=== PATIENT | female | born 1950 | race Caucasian/White ===

== ENCOUNTER 2018-03-27 15:09 | Inpatient (IN) | payer OTHER ==
[~2018-03-27] VITALS: Ht 165.1 cm; Wt 75.8 kg
[~2018-03-27 15:09] MED LIST: ATIVAN0.5 M1 PO; KEFLEX500 M1 PO; MIRALAX119 GM PO; PYRIDIUM200 M1 PO
--- NOTE | 2018-03-27 16:18 | RADIOLOGY REPORT ---
EXAMINATION: XR CHEST CLINICAL INFORMATION: Fever. COMPARISON: None TECHNIQUE: 2 views of the chest were obtained. FINDINGS: Lungs are clear. No pulmonary vascular congestion. There is no pleural effusion. The heart size is normal. The cardiac and mediastinal contours are normal. There are multilevel degenerative changes of dorsal spine. Surgical clips right upper quadrant of abdomen. IMPRESSION: Unremarkable examination.
--- NOTE | 2018-03-27 16:51 | ED GENERAL ADULT ---
History of Present Illness General Chief Complaint: Fever Stated Complaint: FEVER X 2 WEEKS Source: patient Exam Limitations: no limitations Vital Signs & Intake/Output Vital Signs & Intake/Output Vital Signs Date Time Temp Pulse Resp B/P B/P Pulse O2 O2 Flow FiO2 Mean Ox Delivery Rate 03/275 98.7 88 20 148/70 97 03/27 1957 98.3 112 18 156/74 98 03/27 1734 97 Room Air 03/27 1530 98.1 90 18 158/81 98 Room Air Allergies Coded Allergies: No Known Allergies (03/15/18) Reconcile Medications Lorazepam (Ativan) 0.5 MG TABLET 1 TAB PO Q6P PRN anxiety Polyethylene Glycol 3350 (Miralax) 17 GRAM/DOSE POWDER 17 GM PO DAILY constipation mix with water, juice, soda, coffee or tea use until stools soft and regular Triage Note: PT TOLD BY HER PMD TO COME TO ER DUE TO SHE HAS BEEN FEELING LIKE SHE IS BURNING UP AND HAS BEEN RUNNING FEVERS FOR 2 WEEKS , PT STATES THAT HER BODY HURTS SHE HAS SWOLLEN LYMPH NODES FOR 4 WEEKS . ALSO STATES THAT SHE HAS NOT BEEN ABLE TO SLEEP, DENIES COUGH/SOB/CP Triage Nurses Notes Reviewed? yes HPI: Pt is a 67 y/o F PMHx DM2, HTN, HLD, fibromyalgia presenting with fevers and a burning sensation in the neck x 4 weeks. Pt states that this burning waxes and wanes, although became constant as of last night. Pin is located at the anteriolateral right neck. Pt states several weeks ago she noticed a mass under the right corner of her mandible that is still present. Pt states at home she measures fevers w tmax of 100.8. Pt has been following with PCP for this complaint, had an U/S of the neck which showed no LAD. PCP also discontinued HCTZ and meloxicam in hopes of reducing symptoms. Pt admits to a decreased appetite and recent constipation. Pt denies headache, dizziness, cp, SOB, abdominal pain, nausea, recent traveling, rashes, tick bites, LE edema. In the setting of these symptoms, patient has undergone CT abd/pelvis and TSH, as well as U/A. (Dennis MARTEL,Dallin) Past History Travel History Traveled to [place] past [place] day No Medical History Any Pertinent Medical History? 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 No (Dallin Collins MD) Review of Systems Review of Systems Constitutional: Reports: see HPI. Respiratory: Denies: see HPI. Cardiovascular: Denies: see HPI. GI: Reports: see HPI. Musculoskeletal: Reports: see HPI. (Dallin Collins MD) Physical Exam Physical Exam General Appearance: well developed/nourished, no apparent distress, alert, awake Eyes: Bilateral: normal appearance. Ears, Nose, Throat: normal pharynx, normal ENT inspection, hearing grossly normal Neck: normal inspection, supple, full range of motion, Palpable right submandibular gland Respiratory: normal breath sounds, chest non-tender, lungs clear Cardiovascular: regular rate/rhythm, normal peripheral pulses Gastrointestinal: normal bowel sounds, soft, non-tender, no organomegaly Core Measures ACS in differential dx? No CVA/TIA Diagnosis: No Sepsis Present: No Sepsis Focused Exam Completed? No (Dallin Collins MD) Progress Differential Diagnoses I considered the following diagnoses in my evaluation of the patient: Some concern for sialolithiasis in this patient given exam features and history. Lower suspicion for acute intra-abdominal process given lack of abdominal pain or suggestive features on exam with negative CT abdomen in the setting of similar vague symptoms. Could be medication reaction, however seems unlikely as the patient has not started any new medications apart from a antidepressant which was started after the recurrence of the symptoms, making serotonin syndrome or neuroleptic malignant syndrome very unlikely. Very low suspicion also for central nervous system infection, particularly in light of 3 or 4 weeks of symptoms and lack of nuchal rigidity or posterior neck pain or headache. Could be atypical presentation for tickborne illness, however patient denies any tick contact, pets, time spent outside or other risk factors. Very low suspicion for ACS in this patient given time-course, symptom profile and exam features. Plan of Care: Orders Procedure Date/time Status Heart Healthy Diet 03/28 B Active CORTISOL AM 03/28 600 Active CBC WITHOUT DIFFERENTIAL 03/28 600 Active BASIC ELECTROLYTES PLUS BUN&CR 08/15 0600 Active BASIC ELECTROLYTES PLUS BUN&CR 03/28 0000 Active LYME TITRE 03/27 2326 Active Weight 03/27 2134 Active Vital Signs 03/27 2134 Active Teach/Educate 03/27 2134 Active Pain Treatment and Response 03/27 2134 Active Nutritional Intake, Monitor 03/27 2134 Active Isolation 03/27 2134 Active Intake & Output 03/27 2134 Active Patient Care Conference 03/27 2134 Active Activity/Ambulation 03/27 2134 Active Pathway - chart 03/27 2057 Active House Staff 03/27 2057 Active LEGIONELLA URINARY ANTIGEN 03/27 2010 Complete Patient Data 03/27 194 Active Admit to inpatient 03/27 1940 Active Vital Signs 03/27 194 Active URINE OSMOLALITY 03/27 194 Complete URINE CREATININE, SPOT 03/27 194 Complete URINE LYTES, SPOT 03/27 194 Complete Code Status 03/27 194 Active Intake & Output 03/27 1733 Complete CULTURE,URINE 03/27 1652 Active THYROID STIMULATING HORMONE 03/27 1627 Complete TOTAL TRIODOTHYROXINE 03/27 1627 Complete SERUM OSMOLALITY 03/27 1627 Complete FREE T4 03/27 1627 Complete BLOOD CULTURE 03/27 1521 Active URINALYSIS 03/27 1521 Complete TROPONIN LEVEL 03/27 1521 Complete PHOSPHORUS 03/27 1521 Complete MAGNESIUM 03/27 1521 Complete LACTIC ACID 03/27 1521 Complete COMPREHENSIVE METABOLIC PANEL 03/27 1521 Complete CBC WITHOUT DIFFERENTIAL 03/27 1521 Complete EKG 03/27 1521 Active Lab Add-on Test 03/27 UNK Active VTE Mechanical Prophylaxis 03/27 UNK Active Vital Signs 03/27 UNK Active Intake & Output 03/27 UNK Active Current Medications Sig/Jordan Start time Last Medication Dose Stop Time Status Admin Heparin Sodium 5,000 UNIT Q8 03/28 0600 AC (Porcine) Sodium Chloride 1,000 ML Q20H 03/27 2330 UNVr (Normal Saline 0.9%) 03/29 1529 Acetaminophen 650 MG Q6P PRN 03/27 2100 AC (Tylenol) Laboratory Tests 03/27/18 2230: Urine Color YEL, Urine Clarity CLEAR, Urine pH 6.5, Ur Specific [place] 1.010, Urine Protein 30 H, Urine Ketones NEG, Urine Nitrite NEG, Urine Bilirubin NEG, Urine Urobilinogen 0.2, Ur Leukocyte Esterase SMALL H, Ur Microscopic SEDIMENT EXAMINED, Urine RBC 1-3, Urine WBC 3-5 H, Ur Epithelial Cells FEW, Urine Bacteria FEW H, Urine Hemoglobin MOD H, Urine Glucose NEG 03/27/182229: Urine Osmolality 262 L, Ur Random Creatinine 32.0, Ur Random Sodium 37, Ur Random Potassium 18.4, Fraction Sodium Excret 0.7 03/27/18 182: Lactic Acid Cancelled 03/27/18 162: Anion Gap 19 H, Estimated GFR > 60, BUN/Creatinine Ratio 15.7, Glucose 137 H, Serum Osmolality 256 L, Lactic Acid 1.7, Calcium 10.4 H, Phosphorus 3.4, Magnesium 1.9, Total Bilirubin 2.8 H, AST 35, ALT 47, Alkaline Phosphatase 82, Troponin I < 0.01, Total Protein 8.9 H, Albumin 5.4 H, Globulin 3.5, Albumin/ Globulin Ratio 1.5, TSH 0.551, Free T4 1.82, Total T3 1.58, CBC w Diff NO MAN DIFF REQ, RBC 5.15, MCV 88.1, MCH 30.4, MCHC 34.5, RDW 13.0, MPV 7.2 L, Gran % 76.1 H, Lymphocytes % 14.4 L, Monocytes % 8.2, Eosinophils % 0.9, Basophils % 0.4, Absolute Granulocytes 8.4 H, Absolute Lymphocytes 1.6, Absolute Monocytes 0.9 H, Absolute Eosinophils 0.1, Absolute Basophils 0 Microbiology 03/27 2326 URINE ROUT: Legionella Antigen - CAN Cancelled: Cancelled via OE: Duplicate Order 03/27 2326 URINE ROUT: Urine Culture - CAN Cancelled: Cancelled via OE: Duplicate Order 03/27 2326 BLOOD: Blood Culture - CAN Cancelled: Cancelled via OE: Duplicate Order 03/27 2326 BLOOD: Blood Culture - CAN Cancelled: Cancelled via OE: Duplicate Order 03/27 2230 URINE ROUT: Legionella Antigen - COMP 03/27 2230 URINE ROUT: Urine Culture - RECD 03/27 1752 BLOOD: Blood Culture - RECD 03/27 1627 BLOOD: Blood Culture - RECD Plan for labs, blood cultures, CT neck with IV contrast, reassessment. Infectious workup is essentially unremarkable. Patient is noted to be significantly hyponatremic on CMP. She is admitted to the hospitalist service for further management. Remains hemodynamically and neurologically stable while in the emergency department. Initial ED EKG: none (Dallin Collins MD) Departure Departure Time of Disposition: 1942 Disposition: STILL A PATIENT Condition: Stable Clinical Impression Primary Impression: Hyponatremia Referrals: Major Rodgers MD (PCP/Family) Departure Forms: Customer Survey General Discharge Information Admission Note Spoke With: Guy Zarate MD Documentation of Exam: Documentation of any treatments & extenuating circumstances including Concerns Regarding Discharge (functional status, medication knowledge or non-compliance, living conditions, etc.) that warrant an admission rather than observation: Marked hyponatremia, requiring renal function studies, repeat sodium testing close inpatient monitoring. (Dallin Collins MD) Resident Co-Sign Statement Statement: ED Attending supervision documentation- [] I saw and evaluated the patient. I have also reviewed all the pertinent lab results and diagnostic results. I agree with the findings and the plan of care as documented in the Resident's documentation. [x] I have reviewed the ED Record and agree with the Resident's documentation. [] Additions or exceptions (if any) to the Resident's note and plan are summarized below: [] (Demond Cartagena DO) Critical Care Note Critical Care Note Critical Care Time: non-applicable (Dallin Collins MD)
[2018-03-27 16:52] LABS: ABSOLUTE BASOPHIL COUNT 0 /CUMM (0.0-0.2); ABSOLUTE EOSINOPHIL COUNT 0.1 /CUMM (0.0-0.7); ABSOLUTE GRANULOCYTE CT 8.4 /CUMM (1.4-6.5); ABSOLUTE LYMPH COUNT 1.6 /CUMM (1.2-3.4); ABSOLUTE MONOCYTE COUNT 0.9 /CUMM (0.10-0.60); BASOPHIL % 0.4 % (0.0-2.0); EOSINOPHIL % 0.9 % (0-5); GRANULOCYTE % 76.1 % (42.2-75.2); HEMATOCRIT 45.3 % (37-47); MEAN CORPUSCULAR HGB 30.4 PG (27.0-31.0); MEAN CORPUSCULAR HGB CONC 34.5 G/DL (33.0-37.0); MEAN CORPUSCULAR VOLUME 88.1 FL (81.0-99.0); MEAN PLATELET VOLUME 7.2 FL (7.4-10.4); PLATELET COUNT 316 /CUMM (130-400); RED BLOOD CELL CT 5.15 /CUMM (4.20-5.40); WHITE BLOOD CELL COUNT 11.1 /CUMM (4.8-10.8)
--- NOTE | 2018-03-27 19:12 | CT SCAN REPORT ---
EXAMINATION: CT NECK WITH CONTRAST CLINICAL INFORMATION: Right-sided anterior soft tissue infection versus swollen salivary gland. Symptoms of right-sided neck pain and fever. COMPARISON: None TECHNIQUE: 95 mL Optiray 320 injected. Axial images obtained through the neck. Coronal and sagittal reformatted images performed at the CT scanner. DLP: 555.13 mGy-cm FINDINGS: There is streak artifact from patient's dental work. There is no mass or focal fluid collection. There is no significant lymphadenopathy. No mucosal abnormality of the nasopharynx, oropharynx, pharynx or hypopharynx and proximal trachea. The parotid glands, submandibular glands are normal. There are a few small hypodense nodules in the right left lobes of thyroid. Largest measuring 8 mm in the right lobe. This can be further assessed with non-emergent thyroid ultrasound. The partially visualized intracranial structures are normal. The orbits are normal. The paranasal sinuses are normally aerated. There is normal enhancement of the vasculature. There are small calcifications of the left carotid bifurcation but no stenosis of the carotids. There is a normal variant of a bovine aortic arch. The superior mediastinum in the visualized portion of lung apices are unremarkable. There is degenerative spondylosis of cervical spine and thoracic spine with disc height narrowing, endplate spurring and facet joint arthrosis. IMPRESSION: 1. No acute abnormality, CT of neck. 2. Heterogeneous thyroid with small thyroid nodules. Largest measuring 8 mm. This can be further assessed with non-emergent thyroid ultrasound.
--- NOTE | 2018-03-27 20:38 | History & Physical ---
Nicole Lorenzo 03/27/182036: General Information and HPI MD Statement: I have seen and personally examined JAN HARDWICK and documented this H&P. The patient is a 67 year old F who presented with a patient stated chief complaint of []. Source of Information: patient Exam Limitations: no limitations History of Present Illness: 67 year old female with PMH DM2, HTN, HLD, and fibromyalgia presents with 4 week history of fever (Tmax 100.8) and burning sensation in her neck and head. Patient states sx are intermittent. She reports associated decreased appetite and constipation (last BM yesterday). She also reports intermittent nausea, insomnia, and overall fatigue. She has seen her PCP two days ago who conducted a neck US for possible lymphadenopathy. US was normal. Of note: PCP recently discontinued HCTZ (last dose 03/25/18) and Meloxicam. Patient also reports mild suprapubic tenderness and difficulty initiating stream. She has seen her urologist 3 weeks ago and states her symptoms are improving. Allergies/Medications Allergies: Coded Allergies: No Known Allergies (03/15/18) Home Med list Lorazepam (Ativan) 0.5 MG TABLET 1 TAB PO Q6P PRN anxiety Polyethylene Glycol 3350 (Miralax) 17 GRAM/DOSE POWDER 17 GM PO DAILY constipation mix with water, juice, soda, coffee or tea use until stools soft and regular Past History Travel History Traveled to [place] past [place] day No Medical History Neurological: NONE EENT: NONE Cardiovascular: hypertension, hyperlipidemia Respiratory: NONE Gastrointestinal: NONE Hepatic: NONE Renal: NONE Musculoskeletal: fibromyalgia, osteoarthritis Psychiatric: anxiety Endocrine: diabetes Blood Disorders: NONE Cancer(s): NONE 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 Denies: chills, diaphoresis, weakness. EENTM: Reports: no symptoms. Cardiovascular: Reports: no symptoms. Respiratory: Reports: no symptoms. GI: Reports: no symptoms. Genitourinary: Reports: see HPI. Musculoskeletal: Reports: no symptoms. Skin: Reports: no symptoms. Exam & Diagnostic Data Last 24 Hrs of Vital Signs/I&O Vital Signs Date Time Temp Pulse Resp B/P B/P Pulse O2 O2 Flow FiO2 Mean Ox Delivery Rate 03/27 1957 98.3 112 18 156/74 98 03/27 1734 97 Room Air 03/27 1530 98.1 90 18 158/81 98 Room Air Intake & Output 03/27 1600 03/27 0800 03/27 0000 Intake Total Output Total Balance Patient 165 lb Weight Physical Exam General Appearance Alert, Oriented X3, Cooperative, No Acute Distress Skin No Rashes Skin Temp/Moisture Exam: Warm/Dry HEENT Atraumatic, PERRLA Neck Supple, No LAD Lymphatic Cervical nl Cardiovascular Regular Rate, Normal S1, Normal S2, No Murmurs Lungs Clear to Auscultation Abdomen Normal Bowel Sounds, Soft, No Tenderness Extremities No Edema, Normal Pulses, No Tenderness/Swelling Vascular Normal Pulses Assessment/Plan Assessment: 67 year old female with PMH DM2, HTN, HLD, and fibromyalgia presents with 4 week history of fever (Tmax 100.8) and burning sensation in her neck and head that is intermittent. ED work up showed hyponatremia with Na 123 and leukocytosis 11.1. She will be admitted to the general medicine service for further care of the following: Problem List: 1. Hyponatremia 2. Leukocytosis 3. Elevated Bilirubin 4. Thyroid nodules on CT neck Admission Data: VS T98.1 P90 RR18 BP 158/81 Sat 98%RA Pertinent Labs: WBC 11.1; Na 123; T. Bili 2.8 Imaging: CT neck: 1. No acute abnormality, CT of neck. 2. Heterogeneous thyroid with small thyroid nodules. Largest measuring 8 mm. This can be further assessed with non-emergent thyroid ultrasound. CXR: Negative #Hyponatremia-possibly 2/2 low sodium diet (patient on because needs heart healthy diet) vs decrease PO intake vs medication induced (recent d/c of HCTZ with last dose on 03/25) vs psychogenic (patient states she increased PO intake of water with her fever at home) -NS @50cc/hr: this rate was calculated with Dr. Zarate; Na requirements= 140-123 X 0.5(75kg)= 637/3=248dLa to be given of 24hours. Will set rate at 50cc/hr with NS (Na 154mEq) -Repeat BEP at midnight and 6am; monitor Na correction closely -Will obtain Urine antigens: Legionella specifically given patient's hyponatremia. Unlikely given normal CXR and afebrile on presentation. #Leukocytosis-possibly reactive. No other signs of infection. UA pending but was negative outpatient with Urologist. Possible underlying Lyme disease although patient reports no rashes. Will obtain lyme titer since this is CT and patient with 4 week history of low grade fever; fatigue; hyponatremia. -continue to monitor. No role for abx at this time -f/u lyme titer #Elevated T. Bilirubin- s/p cholecystectomy and patient without abdominal pain. Consider fractionating. -Repeat LFTs; normal on admission #Thyroid nodules-incidental finding on CT neck. No need for inpatient work up. -Follow up as outpatient for further work up. Patient has appt for thyroid US and FNA scheduled 03/28. She will need to reschedule this appt. As Ranked By This Provider Problem List: 1. Hyponatremia 2. Total bilirubin, elevated Core Measures/Misc (04/30) Acute Coronary Syndrome ACS Diagnosis: No Congestive Heart Failure Congestive Heart Failure Diagnosis No Cerebrovascular Accident CVA/TIA Diagnosis: No VTE (View Protocol) VTE Risk Factors Age>40 No Mechanical VTE Prophylaxis d/t N/A MechProphylax Ordered No VTE Pharm Prophylaxis d/t NA PharmProphylax ordered Sepsis (View protocol) Sepsis Present: No If YES complete Sepsis Event Note If YES complete Sepsis Event Note Teresa Tamayo 03/27/18 7615: Core Measures/Misc (04/30) Sepsis (View protocol) If YES complete Sepsis Event Note If YES complete Sepsis Event Note Resident Review Statement Resident Statement: examined this patient, discussed with general internist and physician leader, agreed with general internist and physician leader, discussed with family, reviewed EMR data (avail), discussed with nursing , discussed with case mgmt, reviewed images, amended to note Other Findings: Ms. Hardwick is a 67yo F w/ PMH of T2DM, HTN, HLD, fibromyalgia presented w/ fever/intermittent burning sensation in the anterolateral right neck x 4 weeks, also complained of a mass under right corner of mandible that is still present. 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 Also patient was recently started on Lexapro x 1 day as well. She was constipated in the past week that she used miralax for relief and had some episodes of loose BM however not diarrhea. Patient endorsed drinking 2-3L water/day due to that fact she was worrying from her fever, which did not spike during this admission yet. Rest of HPI per above. During our clinical interaction, patient denied recent travel/sick contacts, lightheadedness/diaphoresis/night sweat/weight change/cough/SOB/Chest Pain/ Palpitation/Abdominal pain/CVA tenderness/urinary abnormality, or other skin/ musculoskeletal/neurological/mood disorders, or dietary/appetite change. -Smoking: denied -Alcohol: denied -Drugs: denied On admission, Vitals: stable afebriloe, BP 158/81, 97 RA Physical exam as above. Grossly normal PE without any active findings. -CBC: mild leukocytosis 11.1, otherwise WNL -CMP: AG 19, HypoNa 123, serum OSM 256 -CXR: No acute -CT Neck: 1. No acute abnormality, CT of neck. 2. Heterogeneous thyroid with small thyroid nodules. Largest measuring 8 mm. This can be further assessed with non-emergent thyroid ultrasound. -EKG: NSR w/o significant ST-T abnormalities, unchanged from previous. -Last Echo: none in our system -Interventions in ER: NS bolus x 1 Problem list/Assessment/Hospital Course: #Hypotonic Hyponatremia, multifactorial 2/2 dehydration/HCTZ/SSRI use/Polydipsia #Mild leukocytosis, likely reactive #Incidental findings of thyroid nodules #Fever of Unknown origin, not active on admission #Hyperalbunemia w/o hyperglobinemia, unknown etiology #PMHx as above - Admit to general medicine - Vitals per protocol, monitor I&O per protocol. - AccuChek TIDAC for now. - Continuous IVF NS at 50cc/hr w/ goal of correction <7meq/24hrs - Recheck BEP at midnight and 0600 T+1. - Continue all home meds, except continue holding HCTZ - Hold metformin as patient stated that she was not taking it anymore due to good HbA1c. Recheck HbA1c. - Recheck TSH profiles due to thyroid nodules - Please confirm patient's home meds doses at [facility] in [place]. Patient's med list has no dosing and she could not remember. - Pending cultures including blood/urine/legionella antigen/lyme titer for explaination of FOU - Pain per pathway DVT prophylaxis Heparin SC + ALPS Regular Diet IV Access: Peripheral IV Full Code Dispo: likely [facility] [place] Elliot MARTELGuy 03/28/18 0030: Core Measures/Misc (04/30) Sepsis (View protocol) If YES complete Sepsis Event Note If YES complete Sepsis Event Note Attending MD Review Statement Attending Statement Attending MD Statement: examined this patient, discuss w/resident/PA/BANANA HANDLER, agreed w/resident/PA/BANANA HANDLER Attending Assessment/Plan: Patient is seen and examined independently by me. Care plan discussed with medical front desk coordinator and resident. I agree with the physical exam findings and plan of care as outlined above with the following changes and additions. 67 yo F with history of HTN, HLD, DM, fibromyalgia, s/p cholecystectomy, presented with fever and right neck pain for 4 weeks. Patient had outpatient US of neck which found thyroid nodule and planned for US thyroid and FNA tomorrow. She feels "hot and flush" and occasionally will have low grade temp (Tmax 100.8) . She denies chills, chest pain, SOB, cough, diarrhea or dysuria. She felt nauseous once yesterday but no vomiting. She had lower abdominal pain and had seen a Urologist with negative UA and negative cystoscopy. She has decreased appetite, insomnia, easy fatigue and constipation over the last few weeks. She took Miralax and constipation better with last BM yesterday. Her PCP started her on Lexapro yesterday for which she only took one dose so far. She is also instructed to discontinue HCTZ and meloxicam. Last dose of HCTZ was on 03/25 ( Monday). Because of her lower grade fever, she has been drinking five 20 oz cup of water daily. On exam, no right cervical mass or lymphadenopathy appreciated. Lungs clear. Abdomen benign. Ext: no edema. 03/15/18 CT abdomen and pelvis is unremarkable except for stool burden in colon. In the ED, Na 123 (132 on 03/15/18), Cl 83. K 4.3. Cr 0.9. Ca 10.4, albumin 5.4. WBC 11.1. CXR shows no acute infiltrate or edema. US neck shows no lymphadenopathy, mass or fluid collection, The parotid glands and submandibular glands are normal. Multiple thyroid nodules with largest 8 mm in the right lobe. EKG shows NSR at [address]-T changes when compares with previous EKG. Patient is admitted to [facility] for hyponatremia probably related to HCTZ use. However, she has mild leukocytosis with low grade fever. Even no recall of tick bite, she need to r/o Lyme since it can cause hyponatremia with SIADH effect. Check urine Na and urine osmolality. Check TSH, free T4 and cortisol level. She got 1 L NS in the ED already. Start NS at 50 cc/hr and follow serial Na level. Hold HCTZ and Lexapro. Check Lyme titer, blood and urine culture. Guy Zarate MD FACP
[2018-03-27 21:45] VITALS: BP 148/70
[2018-03-28 06:02] VITALS: BP 140/62
--- NOTE | 2018-03-28 06:50 | PN- Housestaff ---
Chano Ríos 03/28/18 0650: Subjective Follow-up For: Pain in neck, flushing of head Hypertension Hyponatremia Leukocytosis Elevated Bilirubin Thyroid nodules on CT neck Subjective: I visited the patient this morning, she was lying back in her bed, alert and oriented 3, in no acute distress. She had complaints of her neck pain, and flushing of her head and face. Her other complaint was that she has not been able to sleep for the past few days. She also complains about constipation. She did not report any fever, chills, sweating, chest pain, abdominal pain, lightheadedness, dizziness, nausea, vomiting. Review of Systems Constitutional: Reports: see HPI. Objective Last 24 Hrs of Vital Signs/I&O Vital Signs Date Time Temp Pulse Resp B/P B/P Pulse O2 O2 Flow FiO2 Mean Ox Delivery Rate 03/28 1429 98.2 83 18 134/62 97 03/28 0602 98.8 78 20 140/62 98 03/28 0223 98.7 88 20 148/70 03/27 2145 98.7 88 20 148/70 97 03/27 1957 98.3 112 18 156/74 98 03/27 1734 97 Room Air Intake & Output 03/28 1600 03/28 0800 03/28 0000 Intake Total 272 160 8876 Output Total 300 Balance 360 600 900 Intake, IV 400 1000 Intake, Oral 360 200 200 Output, Urine 300 Patient 167 lb Weight Weight Reported by Patient Measurement Method Physical Exam General Appearance: Alert, Oriented X3, Cooperative, No Acute Distress Skin: No Rashes, No Breakdown, No Significant Lesion Skin Temp/Moisture Exam: Warm/Dry Sepsis Skin Exam (color): Normal for Ethnicity HEENT: Atraumatic, PERRLA, EOMI Neck: Supple, No JVD, one firm lymp node 1cm x 1cm on right side Cardiovascular: Regular Rate, Normal S1, Normal S2 Lungs: Clear to Auscultation, Normal Air Movement Abdomen: Normal Bowel Sounds, Soft, No Tenderness Neurological: Normal Speech, Strength at 5/5 X4 Ext, Normal Tone, Sensation Intact Extremities: No Clubbing, No Cyanosis, No Edema, Normal Pulses, No Tenderness/ Swelling Vascular: Normal Pulses, Pulses Symmetrical Assessment/Plan Assessment: Pt is a 67YOF with a PMH significant for type 2 diabetes, hypertension, hyperlipidemia, and fibromyalgia. She presented to the ED yesterday with 4wks severe whole body sensation of burning and a R sided neck lump accompanied by periodic subjective fevers. On admission yesterday, the patient had leukocytosis to 11.1, hyponatremia to 123 which went up to 128, hyperbilirubinemia with Tbili to 2.8, direct bili 0.8 and thyroid nodules on CT neck with largest 8mm. She was afebrile on presentation and has remained afebrile since. Today, BEP shows hyponatremia is correcting at the appropriate rate of no more than 8mEq in the first 24hr. Hyponatremia has improved from 123 to 128. Hypochloremia is also improving. Leukocytosis has resolved at 9.0 today. Urine antigen for legionella is negative. Lyme titer is pending. Hyponatremia: Came up from 123 to 128 Plan: Continue IV NS at rate of 50mL/hr, f/u BEP at 6 PM Leukocytosis: It is probably reactive Plan: CBC in the morning Hyperbilirubinemia: Total bilirubin of 2.8 with direct bili of 0.8 Plan: She will be checked up for reasons of high bili as an outpatient. Constipation: Pt reports constipation for the last month. She used miralax with no effects for 1 wk. She still feels irregular. This is likely chronic and diet related as her last colonoscopy in 2013 showed 1 polyp of no concern. Plan: Senna S and colace PRN HTN Plan: Continue metoprolol and amlodipine. Hold valsartan d/t hyponatremia. Fibromyalgia: Stable. Pt is doing well on PO pain meds PRN. Depression: Continue holding escitalopram d/t hyponatremia. Pt has appropriate mood and affect. Has only been taking the med for 2-3 doses and is onboard with holding it. Stable. Pt is doing well on PO pain meds PRN. Problem List: 1. Hyponatremia 2. Constipation 3. Total bilirubin, elevated 4. Thyroid nodule 5. Depression Pain Ratin Pain Location: Not applicable Pain Goal: Remain pain free Pain Plan: Not applicable Tomorrow's Labs & Rationales: Recheck sodium Chris Barnett MD 03/28/182034: Attending MD Review Statement Attending Statement Attending MD Statement: examined this patient, discuss w/resident/PA/BOILERMAKER WELDER, agreed w/resident/PA/BOILERMAKER WELDER, reviewed EMR data (avail), discussed with nursing, discussed with case mgmt, amended to note Attending Assessment/Plan: The patient was seen and discussed with house staff. Hyponatremia secondary to diuretic, excessive water, low sodium diet. Is correcting at appropriate rate. Will continue IV fluids and liberalize diet. Restart other BP meds, etc.
[2018-03-28 08:15] LABS: ABSOLUTE BASOPHIL COUNT 0 /CUMM (0.0-0.2); ABSOLUTE EOSINOPHIL COUNT 0.1 /CUMM (0.0-0.7); ABSOLUTE GRANULOCYTE CT 6.8 /CUMM (1.4-6.5); ABSOLUTE LYMPH COUNT 1.3 /CUMM (1.2-3.4); ABSOLUTE MONOCYTE COUNT 0.7 /CUMM (0.10-0.60); BASOPHIL % 0.3 % (0.0-2.0); EOSINOPHIL % 1.5 % (0-5); GRANULOCYTE % 75.7 % (42.2-75.2); HEMATOCRIT 41.8 % (37-47); MEAN CORPUSCULAR HGB 29.8 PG (27.0-31.0); MEAN CORPUSCULAR VOLUME 87.5 FL (81.0-99.0); MEAN PLATELET VOLUME 7.6 FL (7.4-10.4); PLATELET COUNT 321 /CUMM (130-400); RBC DISTRIBUTION WIDTH 13.4 % (11.5-14.5); RED BLOOD CELL CT 4.78 /CUMM (4.20-5.40)
--- NOTE | 2018-03-28 08:41 | PN- Student ---
Mike Ramsey 03/28/18 0830: Subjective Subjective: Intro: Pt is a 67YOF with a PMH significant for type 2 diabetes, hypertension, hyperlipidemia, and fibromyalgia who is presenting with flushing and feeling of burning fevers x4wks. HPI: Pt presented to the ED yesterday with severe whole body sensation of burning and a R sided neck lump accompanied by periodic fevers for the last 4wks measured to 100.8 at home. She also had been experiencing lower abdominal discomfort and difficulty initiating urination for the past 6wks or so. 4wks prior to this visit, the patient saw Dr. Vivien Lyle urologist for her abdominal discomfort and urinary symptoms as she thought she may be having a urinary tract issue. Dr. Lyle stopped the pt's tramadol and performed a cystoscopy which was normal. There has been no change in these symptoms. 2wks ago, the pt came to [facility] for her lower abdominal discomfort and urinary symptoms. CT A/P showed increased stool burden in the colon and she was given miralax. UCx at that time was clean though she was given Keflex in the ED which she reports finishing. The pt has also been seeing her PCP Dr. Major Rodgers for the lump that developed on the L side of her neck. She had an US which showed nothing for the neck lump but some thyroid nodularity and was scheduled for FNA on 03/28/18 (has been rescheduled). PCP is still investigating the lump. Additionally, the pt's PCP stopped her meloxicam and her HCTZ as he thought these may be contributing to her symptoms. On admission yesterday, the patient had leukocytosis to 11.1, hyponatremia to 123, hyperbilirubinemia with Tbili to 2.8, and thyroid nodules on CT neck with largest 8mm. The neck lump on the L was not found to be greater than 1cm. She was afebrile on presentation and has remained afebrile since. Meds: Cont- Metoprolol 25mg BID Amlodipine 5mg OD Yuvafem 10microg 2x/wk Lorazapam 0.5mg Q6 PRN Loratadine 10mg OD PRN Held - KCl 20mEq OD Escitalopram 10mg OD Valsartan 160mg OD D/c this week by PCP HCTZ 25mg OD Meloxicam 7.5mg OD Allergies: Penicillin - pt reports her mother told her and she doesn't know what her reaction was. She thinks she took it as an adult and tolerated it well. PMH: DM2, HTN, HLD, fibromyalgia, Osteoarthritis, anxiety, frequent UTIs, vaginal atrophy PSH: total hysterectomy in 2000, cholecystectomy in , sinus debulking (can' t remember year), removal of precancerous skin lesion on L eyelid (can't remember year) Family: Mother passed from lung cancer, was smoker. Brother recently diagnosed with lung cancer, was smoker. Brother and his son have kidney stones. Social: Pt is and had 2 children via uncomplicated . 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 Pt's is supportive, but is morbidly obese and has several comorbid conditions. Pt was active and went to the gym several times per week until 4wks ago when she became ill. She eats a heart healthy, low Na diet at home. Objective Objective: Vital Signs Date Time Temp Pulse Resp B/P B/P Pulse O2 O2 Flow FiO2 Mean Ox Delivery Rate 03/28 0602 98.8 78 20 140/62 98 03/28 0223 98.7 88 20 148/70 03/27 2145 98.7 88 20 148/70 97 03/27 1957 98.3 112 18 156/74 98 03/27 1734 97 Room Air 03/27 1530 98.1 90 18 158/81 98 Room Air Intake & Output 03/28 1600 03/28 0800 03/28 0000 Intake Total 600 1200 Output Total 300 Balance 600 900 Intake, IV 400 1000 Intake, Oral 200 200 Output, Urine 300 Patient 167 lb Weight Weight Reported by Patient Measurement Method Physical Exam Gen - NAD, well nourished, well developed, alert Psych - appropriate mood and affect, slightly anxious Neuro - AOx4, patellar and biceps reflexes present and symmetrical HEENT - normocephalic, atraumatic, PERRLA, MMM, slightly tender swelling in the R neck at the angle of the mandible measuring about 1cm x 1cm, smooth thyroid without nodularity or goiter CV - RRR no MRG Pulm - CTA BL, good air entry, no increased work of breathing Abd - +BS, soft, nondistended, nontender to palpation in all quadrants, no hepatosplenomegaly Ext - warm and well perfused, slight nondependent edema at the ankle, PT/DP pulses 2+ BL, radial pulses 2+ bL Results Results: Laboratory Tests 03/28/18 0632: Anion Gap 15, Estimated GFR > 60, BUN/Creatinine Ratio 15.7, Cortisol AM Sample 22.0, CBC w Diff NO MAN DIFF REQ, RBC 4.78, MCV 87.5, MCH 29.8, MCHC 34.0, RDW 13.4, MPV 7.6, Gran % 75.7 H, Lymphocytes % 14.5 L, Monocytes % 8.0, Eosinophils % 1.5, Basophils % 0.3, Absolute Granulocytes 6.8 H, Absolute Lymphocytes 1.3, Absolute Monocytes 0.7 H, Absolute Eosinophils 0.1, Absolute Basophils 0 03/28/18 0000: Anion Gap 14, Estimated GFR > 60, BUN/Creatinine Ratio 17.1, Lyme Disease Antibody Pending 03/27/18 2230: Urine Color YEL, Urine Clarity CLEAR, Urine pH 6.5, Ur Specific [place] 1.010, Urine Protein 30 H, Urine Ketones NEG, Urine Nitrite NEG, Urine Bilirubin NEG, Urine Urobilinogen 0.2, Ur Leukocyte Esterase SMALL H, Ur Microscopic SEDIMENT EXAMINED, Urine RBC 1-3, Urine WBC 3-5 H, Ur Epithelial Cells FEW, Urine Bacteria FEW H, Urine Hemoglobin MOD H, Urine Glucose NEG 03/27/18 2230: Urine Osmolality 262 L, Ur Random Creatinine 32.0, Ur Random Sodium 37, Ur Random Potassium 18.4, Fraction Sodium Excret 0.7 03/27/18 1821: Lactic Acid Cancelled 03/27/18 1627: Anion Gap 19 H, Estimated GFR > 60, BUN/Creatinine Ratio 15.7, Glucose 137 H, Serum Osmolality 256 L, Lactic Acid 1.7, Calcium 10.4 H, Phosphorus 3.4, Magnesium 1.9, Total Bilirubin 2.8 H, Direct Bilirubin 0.8 H, AST 35, ALT 47, Alkaline Phosphatase 82, Troponin I < 0.01, Total Protein 8.9 H, Albumin 5.4 H , Globulin 3.5, Albumin/Globulin Ratio 1.5, TSH 0.551, Free T4 1.82, Total T3 1.58, CBC w Diff NO MAN DIFF REQ, RBC 5.15, MCV 88.1, MCH 30.4, MCHC 34.5, RDW 13.0, MPV 7.2 L, Gran % 76.1 H, Lymphocytes % 14.4 L, Monocytes % 8.2, Eosinophils % 0.9, Basophils % 0.4, Absolute Granulocytes 8.4 H, Absolute Lymphocytes 1.6, Absolute Monocytes 0.9 H, Absolute Eosinophils 0.1, Absolute Basophils 0 Microbiology 03/27 2230 URINE ROUT: Legionella Antigen - Negative 03/27 2230 URINE ROUT: Urine Culture - no growth one day 03/27 175 BLOOD: Blood Culture - no growth one day 03/27 162 BLOOD: Blood Culture - no growth one day Assessment/Plan Assessment: Assessment: Pt is a 67YOF with a PMH significant for type 2 diabetes, hypertension, hyperlipidemia, and fibromyalgia. She presented to the ED yesterday with 4wks severe whole body sensation of burning and a R sided neck lump accompanied by periodic subjective fevers. This was concurrent with lower abdominal discomfort and difficulty initiating urination. Pt has seen urologist Dr. Lyle for the issue but no pathologies were found. She has also been to the [facility] ED on 03/15/18 and was found to have constipation. At the same time, pt has been worked up by PCP Dr. Rodgers for neck lump and was found to have small thyroid nodules which are scheduled to be aspirated. On admission yesterday, the patient had leukocytosis to 11.1, hyponatremia to 123, hyperbilirubinemia with Tbili to 2.8, and thyroid nodules on CT neck with largest 8mm. She was afebrile on presentation and has remained afebrile since. Today, BEP shows hyponatremia is correcting at the appropriate rate of no more than 8mEq in the first 24hr. Hyponatremia has improved from 123 to 128. Hypochloremia is also improving. Leukocytosis has resolved at 9.0 today. Urine antigen for legionella is negative. Lyme titer is pending. Problem List/Plan 1. Hyponatremia Pt is hyponatremic with low serum osm and low urine osm making primary polydipsia and decreased solute intake the most likely etiologies for her condition. It is likely that a combination of the patient's low Na diet along with her increased H2O intake are to blame. Other etiologies to consider are thyroid disease and hypercortisolism, along with Lyme disease as this can be easily corrected but the patient does not have classic symptoms. TSH and cortisol are WNL. Similarly, we have considered legionella but this is unlikely given the clinical scenario. It has been r/o with neg urine antigen. - continue IV NS at rate of 50mL/hr - f/u Lyme - f/u BEP 2. Leukocytosis We will consider infectious etiology for leukocytosis. Blood/Urine Cx show no growth after one day though making this etiology unlikely. Leukocytosis has resolved this morning to 9.0 also evidencing a non infectious etiology. - CBC in the morning - monitor vitals 3. Hyperbilirubinemia Pt's hyperbilirubenmia with Tbili of 2.8 and direct of 0.8 could be from a number of causes including hepatitis, BELTRAN, and drugs or toxins. Hepatitis is unlikely as the pt is low risk. BELTRAN is possible as the pt has a hx of HLD. As the patient has recently started meloxicam, she could have drug induced hyperbilirubinemia, a known though rare side effect. However, as the hyperbilirubinemia is subclinical, determining an etiology is of little concern at this time. - will call PCP for Hep C screening result and baseline LFTs - f/u LFTs outpatient 4. Constipation Pt reports constipation for the last month. She used miralax with no effects for 1 wk. She still feels irregular. This is likely chronic and diet related as her last colonoscopy in 2013 showed 1 polyp of no concern. - senna S and colace PRN 5. HTN Continue metoprolol and amlodipine. Hold valsartan d/t hyponatremia. 6. Fibromyalgia Stable. Pt is doing well on PO pain meds PRN. 7. Depression Continue holding escitalopram d/t hyponatremia. Pt has appropriate mood and affect. Has only been taking the med for 2-3 doses and is onboard with holding it. Diet: Regular DVT: ALPS and heparin SQ Code: Full
[2018-03-28 14:29] VITALS: BP 134/62
[2018-03-28] MEDS ORDERED: CLARITIN10 M1 PO (15:20)
[2018-03-28] MEDS ORDERED: ESCITALOPRAM OX20 MG PO (15:20)
[2018-03-28] MEDS ORDERED: POTASSIUM CHLO20 ME2 PO (15:21)
[2018-03-28] MEDS ORDERED: MELOXICAM7.5 M1 PO (15:21)
[2018-03-28] MEDS ORDERED: ATIVAN0.5 M1 PO (15:22)
[2018-03-28] MEDS ORDERED: METOPROLOL TART25 M1 PO (15:22)
[2018-03-28] MEDS ORDERED: VALSARTAN160 M1 PO (15:22)
[2018-03-28] MEDS ORDERED: AMLODIPINE BESYL5 M1 PO (15:22)
[2018-03-28 22:01] VITALS: BP 136/70
[2018-03-29 05:49] VITALS: BP 128/62
--- NOTE | 2018-03-29 06:34 | PN- Housestaff ---
Chano Ríos 03/29/18 0634: Subjective Follow-up For: Pain in neck, flushing of head Hypertension Hyponatremia Leukocytosis Elevated Bilirubin Thyroid nodules on CT neck Subjective: Last night she was anxious about her medical problems. I talked to her and for 45 minutes from 19:50 to 20:45. I visited the patient this morning, she was sitting at the age of her bed. Alert and oriented 3, in no acute distress. She had more questions about her blurry vision which had occurred last night. She also has a history of cataract , and diabetes mellitus which might be the reason for her blurry vision. She denies headache, lightheadedness, dizziness, chest pain, abdominal pain, diarrhea, constipation, dysuria, nausea, or vomiting. Review of Systems Constitutional: Reports: see HPI. Objective Last 24 Hrs of Vital Signs/I&O Vital Signs Date Time Temp Pulse Resp B/P B/P Pulse O2 O2 Flow FiO2 Mean Ox Delivery Rate 03/29 0549 97.5 69 20 128/62 97 03/28 2201 98.2 72 20 136/70 96 Room Air 03/28 2036 72 136/70 03/28 1757 76 140/72 03/28 1429 98.2 83 18 134/62 97 Intake & Output 03/29 1600 03/29 0800 03/29 0000 Intake Total 580 600 Output Total Balance 580 600 Intake, IV 400 200 Intake, Oral 180 400 Physical Exam General Appearance: Alert, Oriented X3, Cooperative, No Acute Distress Skin: No Rashes Skin Temp/Moisture Exam: Warm/Dry Sepsis Skin Exam (color): Normal for Ethnicity HEENT: Atraumatic, PERRLA Neck: Supple, No JVD Cardiovascular: Regular Rate, Normal S1, Normal S2 Lungs: Clear to Auscultation, Normal Air Movement Abdomen: Normal Bowel Sounds, Soft, No Tenderness Neurological: Normal Speech, Strength at 5/5 X4 Ext, Normal Tone, Sensation Intact Extremities: No Clubbing, No Cyanosis, No Edema, Normal Pulses, No Tenderness/ Swelling Assessment/Plan Assessment: Pt is a 67YOF with a PMH significant for type 2 diabetes, hypertension, hyperlipidemia, and fibromyalgia. She presented to the ED yesterday with 4wks severe whole body sensation of burning and a R sided neck lump accompanied by periodic subjective fevers. On admission yesterday, the patient had leukocytosis to 11.1, hyponatremia to 123 which went up to 128, hyperbilirubinemia with Tbili to 2.8, direct bili 0.8 and thyroid nodules on CT neck with largest 8mm. She was afebrile on presentation and has remained afebrile since. Today, BEP shows hyponatremia is correcting at the appropriate rate of no more than 8mEq in the first 24hr. Hyponatremia has improved from 123 to 128. Hypochloremia is also improving. Leukocytosis has resolved at 9.0 today. Urine antigen for legionella is negative. Lyme titer is pending. I will call her and inform her about the Lyme titer later today. Hyponatremia: Came up from 123 to 128, 132. Plan: She received IV normal saline here. Please recheck a sodium in 1 week from her discharge. Leukocytosis: It is probably reactive Plan: We will follow-up your CBC Hyperbilirubinemia: Total bilirubin of 2.8 with direct bili of 0.8 Plan: She will be checked up for reasons of high bili as an outpatient. Constipation: Pt reports constipation for the last month. She used miralax with no effects for 1 wk. She still feels irregular. This is likely chronic and diet related as her last colonoscopy in 2013 showed 1 polyp of no concern. Plan: Senna S and colace PRN HTN Plan: Continue metoprolol and amlodipine. Hold valsartan d/t hyponatremia. Hydrochlorothiazide was held before she was admitted to the hospital. Fibromyalgia: Stable. Pt is doing well on PO pain meds PRN. Depression: Continue holding escitalopram d/t hyponatremia. Pt has appropriate mood and affect. Has only been taking the med for 2-3 doses and is onboard with holding it. Stable. Pt is doing well on PO pain meds PRN. Problem List: 1. Hyponatremia 2. Total bilirubin, elevated 3. Thyroid nodule 4. Depression 5. Constipation Pain Ratin Pain Location: Not applicable Pain Goal: Remain pain free Pain Plan: Not applicable Tomorrow's Labs & Rationales: Not applicable Chris Barnett MD 03/29/18 1802: Attending Review Statement Attending Statement Attending Statement: examined this patient, discuss w/resident/PA/EMPLOYMENT EDUCATIONAL COORD, agreed w/resident/PA/EMPLOYMENT EDUCATIONAL COORD, reviewed EMR data (avail), discussed with nursing, discussed with case mgmt, amended to note Attending Assessment/Plan: The patient was seen and discussed with house staff. Na increased and OK to discharge to home today with follow-up with PCP.
--- NOTE | 2018-03-29 08:15 | PN- Student ---
Subjective Subjective: Pt seen and examined at bedside this morning. She reports great improvement from yesterday with only mild burning sensation occasionally and no abdominal pain. She says the lump in her R neck has reduced pain as well. She denies headache, chest pain, SOB, nausea, vomiting, leg pain. She remains constipated but feels like she can move her bowels today. Objective Objective: Vital Signs Date Time Temp Pulse Resp B/P B/P Pulse O2 O2 Flow FiO2 Mean Ox Delivery Rate 03/29 0549 97.5 69 20 128/62 97 03/28 2201 98.2 72 20 136/70 96 Room Air 03/28 2036 72 136/70 03/28 1757 76 140/72 03/28 1429 98.2 83 18 134/62 97 Intake & Output 03/29 1600 03/29 0800 03/29 0000 Intake Total 580 600 Output Total Balance 580 600 Intake, IV 400 200 Intake, Oral 180 400 Physical Exam Gen - NAD, well nourished, well developed, alert Psych - appropriate mood and affect, slightly anxious Neuro - AOx4 HEENT - normocephalic, atraumatic, PERRLA, MMM, nontender swelling in the R neck at the angle of the mandible measuring about 1cm x 1cm, smooth thyroid without nodularity or goiter CV - RRR no MRG Pulm - CTA BL, good air entry, no increased work of breathing Abd - +BS, soft, nondistended, nontender to palpation in all quadrants, no hepatosplenomegaly Ext - warm and well perfused Results Results: Laboratory Tests 03/29/18 0940: Anion Gap 10, Estimated GFR > 60, BUN/Creatinine Ratio 17.1 03/28/18 1800: Anion Gap 10, Estimated GFR > 60, BUN/Creatinine Ratio 18.6 Assessment/Plan Assessment: Assessment: Pt is a 67YOF with a PMH significant for type 2 diabetes, hypertension, hyperlipidemia, and fibromyalgia. She presented to the ED 2 days ago with 4wks severe whole body sensation of burning and a R sided neck lump accompanied by periodic subjective fevers. This was concurrent with lower abdominal discomfort and difficulty initiating urination. Pt has seen urologist Dr. Lyle for the issue but no pathologies were found. She has also been to the [facility] on 03/15/18 and was found to have constipation. At the same time, pt has been worked up by PCP Dr. Rodgers for neck lump and was found to have small thyroid nodules which are scheduled to be aspirated. On admission, the patient had leukocytosis to 11.1, hyponatremia to 123, hyperbilirubinemia with Tbili to 2.8, and thyroid nodules on CT neck with largest 8mm. She was afebrile on presentation and has remained afebrile since. Yesterday, BEP showed hyponatremia was correcting at the appropriate rate of no more than 8mEq in the first 24hr. Hyponatremia has improved from 123 to 132. Leukocytosis resolved at 9.0 yesterday. Urine antigen for legionella is negative. AM cortisol WNL. TSH WNL. Lyme titer is neg. Problem List/Plan 1. Hyponatremia Pt is hyponatremic with low serum osm and low urine osm making primary polydipsia and decreased solute intake the most likely etiologies for her condition. It is likely that a combination of the patient's low Na diet, her increased H2O intake secondary to feeling feverish, and several medications she was taking which can cause hyponatremia are to blame. We have r/o hypercortisolism and hypothyroidism. We have considered legionella but this is unlikely given the clinical scenario. It has been r/o with neg urine antigen. Lyme titer is neg as well. - continue IV NS at rate of 50mL/hr until discharge - discharge in the afternoon if pt is stable - f/u outpatient with PCP 2. Leukocytosis We have considered infectious etiology for leukocytosis. Blood/Urine Cx show no growth after two days though making this etiology highly unlikely. Leukocytosis has resolved also evidencing a non infectious etiology. - monitor vitals - Resolved 3. Hyperbilirubinemia Pt's hyperbilirubenmia with Tbili of 2.8 and direct of 0.8 could be from a number of causes including hepatitis, BELTRAN, and drugs or toxins. Hepatitis is unlikely as the pt is low risk. BELTRAN is possible as the pt has a hx of HLD. As the patient has recently started meloxicam, she could have drug induced hyperbilirubinemia, a known though rare side effect. However, as the hyperbilirubinemia is subclinical, determining an etiology is of little concern at this time. - will call PCP for Hep C screening result and baseline LFTs - f/u LFTs outpatient with PCP 4. Constipation Pt reports constipation for the last month. She used miralax with no effects for 1 wk. She still feels irregular. This is likely chronic and diet related as her last colonoscopy in 2013 showed 1 polyp of no concern. - senna S and colace PRN 5. HTN Continue metoprolol and amlodipine. Hold valsartan d/t hyponatremia. 6. Fibromyalgia Stable. Pt is doing well on PO pain meds PRN. 7. Depression/Anxiety Continue holding escitalopram d/t hyponatremia. Pt has appropriate mood and affect. Has only been taking the med for 2-3 doses and is onboard with holding it. - f/u outpatient with PCP Diet: Regular DVT: ALPS and heparin SQ Code: Full Pt is hyponatremic with low serum osm and low urine osm making primary polydipsia and decreased solute intake the most likely etiologies for her condition. It is likely that a combination of the patient's low Na diet, her increased H2O intake secondary to feeling feverish, and several medications she was taking which can cause hyponatremia are to blame. We have r/o hypercortisolism and hypothyroidism. We have considered legionella but this is unlikely given the clinical scenario. It has been r/o with neg urine antigen. Lyme disease could also be a culprit but the patient does not have classic symptoms. - continue IV NS at rate of 50mL/hr - f/u Lyme - f/u BEP this AM - discharge in the afternoon if pt is stable - f/u outpatient with PCP 2. Leukocytosis We have considered infectious etiology for leukocytosis. Blood/Urine Cx show no growth after two days though making this etiology highly unlikely. Leukocytosis has resolved also evidencing a non infectious etiology. - monitor vitals - Resolved 3. Hyperbilirubinemia Pt's hyperbilirubenmia with Tbili of 2.8 and direct of 0.8 could be from a number of causes including hepatitis, BELTRAN, and drugs or toxins. Hepatitis is unlikely as the pt is low risk. BELTRAN is possible as the pt has a hx of HLD. As the patient has recently started meloxicam, she could have drug induced hyperbilirubinemia, a known though rare side effect. However, as the hyperbilirubinemia is subclinical, determining an etiology is of little concern at this time. - will call PCP for Hep C screening result and baseline LFTs - f/u LFTs outpatient with PCP 4. Constipation Pt reports constipation for the last month. She used miralax with no effects for 1 wk. She still feels irregular. This is likely chronic and diet related as her last colonoscopy in 2013 showed 1 polyp of no concern. - senna S and colace PRN 5. HTN Continue metoprolol and amlodipine. Hold valsartan d/t hyponatremia. 6. Fibromyalgia Stable. Pt is doing well on PO pain meds PRN. 7. Depression/Anxiety Continue holding escitalopram d/t hyponatremia. Pt has appropriate mood and affect. Has only been taking the med for 2-3 doses and is onboard with holding it. - f/u outpatient with PCP Diet: Regular DVT: ALPS and heparin SQ Code: Full
[2018-03-29 09:23] VITALS: BP 138/78
--- NOTE | 2018-03-29 09:33 | Discharge Summary ---
Visit Information Visit Dates Admission Date: 03/27/18 Discharge Date: 03/29/2018 Hospital Course Course Attending Physician: Chris Barnett MD Primary Care Physician: Major Rodgers MD Hospital Course: Pt is a 67YOF with a PMH significant for type 2 diabetes, hypertension, hyperlipidemia, and fibromyalgia. She presented to the ED yesterday with 4wks severe whole body sensation of burning and a R sided neck lump accompanied by periodic subjective fevers. On admission yesterday, the patient had leukocytosis to 11.1, hyponatremia to 123 which went up to 128, hyperbilirubinemia with Tbili to 2.8, direct bili 0.8 and thyroid nodules on CT neck with largest 8mm. She was afebrile on presentation and has remained afebrile since. Today, BEP shows hyponatremia is correcting at the appropriate rate of no more than 8mEq in the first 24hr. Hyponatremia has improved from 123 to 128. Hypochloremia is also improving. Leukocytosis has resolved at 9.0 today. Urine antigen for legionella is negative. Lyme titer is pending. I will call her and inform her about the Lyme titer later today. Hyponatremia: Came up from 123 to 128, last one was 132. Plan: She received IV normal saline here. Please recheck a sodium in 1 week from her discharge. Leukocytosis: It is probably reactive Plan: We will follow-up your CBC Hyperbilirubinemia: Total bilirubin of 2.8 with direct bili of 0.8 Plan: She will be checked up for reasons of high bili as an outpatient. Constipation: Pt reports constipation for the last month. She used miralax with no effects for 1 wk. She still feels irregular. This is likely chronic and diet related as her last colonoscopy in 2013 showed 1 polyp of no concern. Plan: Senna S and colace PRN HTN Plan: Continue metoprolol and amlodipine. Hold valsartan d/t hyponatremia. Hydrochlorothiazide was held before she was admitted to the hospital. Fibromyalgia: Stable. Pt is doing well on PO pain meds PRN. Depression: Continue holding escitalopram d/t hyponatremia. Pt has appropriate mood and affect. Has only been taking the med for 2-3 doses and is onboard with holding it. Stable. Pt is doing well on PO pain meds PRN. Allergies: Coded Allergies: No Known Allergies (03/15/18) Significant Procedures: EXAM TYPE: CAT - CT NECK W IV CONTRAST EXAMINATION: CT NECK WITH CONTRAST CLINICAL INFORMATION: Right-sided anterior soft tissue infection versus swollen salivary gland. Symptoms of right-sided neck pain and fever. COMPARISON: None TECHNIQUE: 95 mL Optiray 320 injected. Axial images obtained through the neck. Coronal and sagittal reformatted images performed at the CT scanner. DLP: 555.13 mGy-cm FINDINGS: There is streak artifact from patient's dental work. There is no mass or focal fluid collection. There is no significant lymphadenopathy. No mucosal abnormality of the nasopharynx, oropharynx, pharynx or hypopharynx and proximal trachea. The parotid glands, submandibular glands are normal. There are a few small hypodense nodules in the right left lobes of thyroid. Largest measuring 8 mm in the right lobe. This can be further assessed with non-emergent thyroid ultrasound. The partially visualized intracranial structures are normal. The orbits are normal. The paranasal sinuses are normally aerated. There is normal enhancement of the vasculature. There are small calcifications of the left carotid bifurcation but no stenosis of the carotids. There is a normal variant of a bovine aortic arch. The superior mediastinum in the visualized portion of lung apices are unremarkable. There is degenerative spondylosis of cervical spine and thoracic spine with disc height narrowing, endplate spurring and facet joint arthrosis. IMPRESSION: 1. No acute abnormality, CT of neck. 2. Heterogeneous thyroid with small thyroid nodules. Largest measuring 8 mm. This can be further assessed with non-emergent thyroid ultrasound. EXAM TYPE: RAD - XRY-CHEST XRAY, TWO VIEWS EXAMINATION: XR CHEST CLINICAL INFORMATION: Fever. COMPARISON: None TECHNIQUE: 2 views of the chest were obtained. FINDINGS: Lungs are clear. No pulmonary vascular congestion. There is no pleural effusion. The heart size is normal. The cardiac and mediastinal contours are normal. There are multilevel degenerative changes of dorsal spine. Surgical clips right upper quadrant of abdomen. IMPRESSION: Unremarkable examination. Disposition Summary Disposition Principal Diagnosis: Hyponatremia Pain in neck, flushing of Additional Diagnosis: Hypertension Leukocytosis Elevated bilirubin Thyroid nodules on CT scan of neck Cataract Discharge Disposition: home or self care Discharge Instructions General Discharge Information Code Status: Full Code Patient's Diet: Regular diet Patient's Activity: As tolerated Follow-Up Instructions/Appts: Please follow-up with your PCP Please recheck your sodium in 1 week Please follow-up with your commercial lines manager Please follow-up with your psychiatrist to control your anxiety Medications at Discharge Discharge Medications: Stop taking the following medications: Cephalexin (Keflex) 500 MG CAPSULE ORAL THREE TIMES DAILY Qty = 21 Phenazopyridine HCl (Pyridium) 200 MG TABLET ORAL THREE TIMES DAILY Qty = 9 Escitalopram Oxalate (Escitalopram Oxalate) 20 MG TABLET ORAL DAILY Potassium Chloride (Potassium Chloride) 20 MEQ TAB.ER.PRT ORAL DAILY Valsartan (Valsartan) 160 MG TABLET ORAL DAILY Continue taking these medications: Polyethylene Glycol 3350 (Miralax) 17 GRAM/DOSE POWDER 17 Gram ORAL DAILY Qty = 527 Instructions: mix with water, juice, soda, coffee or tea use until stools soft and regular Comments: Last Taken: 03/29/18 Time: 9:30AM Lorazepam (Ativan) 0.5 MG TABLET 1 Tablet ORAL EVERY SIX HOURS NEEDED as needed for anxiety Qty = 20 Comments: Last Taken: 03/28/18 Time: 9PM Loratadine (Claritin) 10 MG TABLET 1 Tablet ORAL DAILY Comments: DID NOT ADMINISTER IN HOSPITAL Meloxicam (Meloxicam) 7.5 MG TABLET 1 Tablet ORAL DAILY Comments: DID NOT ADMINISTER IN HOSPITAL Metoprolol Tartrate (Metoprolol Tartrate) 25 MG TABLET 1 Tablet ORAL TWICE DAILY Comments: Last Taken: 03/29/18 Time: 9:30AM Amlodipine Besylate (Amlodipine Besylate) 5 MG TABLET 1 Tablet ORAL DAILY Comments: Last Taken: 03/29/18 Time: 0930 Copies To: Vishal MARTEL,Major Cardozo Attending MD Review Statement Documenting Attending: Chris Barnett MD Other Findings: Agree with the above summary of care. PCP to follow-up BEP in 1 week as well as BP. Needs to reschedule for thyroid biopsy.
--- NOTE | 2018-03-29 10:31 | Patient Discharge Instructions ---
Discharge Instructions General Discharge Information You were seen/treated for: Pain in neck, flushing of head Hypertension Hyponatremia Leukocytosis Elevated Bilirubin Thyroid nodules on CT neck You had these procedures: CT scan of her neck was done here Special Instructions: Please follow-up with your PCP for the thyroid nodules Please recheck your sodium on Monday, April 02. A script has been provided. Please follow-up with her psychiatrist to control your anxiety Please follow-up with your assistant financial accountant Diet Continue normal diet: Yes Recommended Diet: Regular Activity Full Activity/No Limits: No Activity Self Limited: Yes Acute Coronary Syndrome Inclusion Criteria At DC or during hospital stay patient has or had the following: ACS DIAGNOSIS No Discharge Core Measures Meds if any: Prescribed or Continued at Discharge Meds if any: NOT Prescribed or Continued at Discharge Congestive Heart Failure Inclusion Criteria At DC or during hospital stay patient has or had the following: CHF DIAGNOSIS No Discharge Core Measures Meds if any: Prescribed or Continued at Discharge Meds if any: NOT Prescribed or Continued at Discharge Cerebrovascular accident Inclusion Criteria At DC or during hospital stay patient has or had the following: CVA/TIA Diagnosis No Discharge Core Measures Meds if any: Prescribed or Continued at Discharge Meds if any: NOT Prescribed or Continued at Discharge Venous thromboembolism Inclusion Criteria VTE Diagnosis No VTE Type NONE VTE Confirmed by (Test) NONE Discharge Core Measures - Per Current guidelines, there needs to be overlap - treatment for the first 5 days of Warfarin therapy. - If discharged on Warfarin prior to 5 days of - overlap therapy, the patient will need to be - assessed for post discharge needs including - *Post discharge parental anticoagulation - *Warfarin and/or parental anticoagulation education - *Follow up date to check INR post discharge At least 5 days overlap therapy as Inpatient No Meds if any: Prescribed or Continued at Discharge Note: Overlap Therapy is Warfarin and Anticoagulant Meds if any: NOT Prescribed or Continued at Discharge
[2018-03-31] MEDS ORDERED: METFORMIN HCL500 M4 PO (08:20)
[2018-03-31] MEDS ORDERED: ATORVASTATIN CA10 M1 PO (08:23)
== END 2018-03-29 13:47 | DRG 641 ==
LOC: ERH 15:09 → ERHI 19:40 → 2NA 19:40 → ENRESERV 20:13 → ENTRNSPT 20:56 → EDTRNSPTSTS 20:57 → EDTRNSPT 20:57 → 2NA 21:21 → CMPTRNSPT 21:21 → 2NA 03-28 07:39 → ENPENDDIS 03-29 11:22 → 2NA 03-29 13:47
PROVIDERS: Physician Assistant
DX: E87.1 Hypo-osmolality and hyponatremia (principal); I10 Essential (primary) hypertension; E78.5 Hyperlipidemia, unspecified; E04.1 Nontoxic single thyroid nodule; R50.9 Fever, unspecified; E11.9 Type 2 diabetes mellitus without complications; M79.7 Fibromyalgia; E80.6 Other disorders of bilirubin metabolism; E87.8 Other disorders of electrolyte and fluid balance, not elsewhere classified; K59.00 Constipation, unspecified; F32.9 Major depressive disorder, single episode, unspecified; F41.9 Anxiety disorder, unspecified
CPT/HCPCS: 2NASP; 84133; 84300; 86618; 36415; 36592; 71046; 81001; 82436; 82570; 87040; 87086; 87449; 93005; 93010; J1644; J2405